=== PATIENT | female | born 1970 | race Caucasian/White ===

== ENCOUNTER 2024-01-09 10:28 | Outpatient (AMB) | payer OTHER, SELFPAY ==
--- NOTE | 2024-01-09 10:44 | MHC.PC.OV ---
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 Headaches-Forehead, nasal bridge. Denies maxillary pain, PND, cough Reports change in bowels, more constipation, abnormal colored stools Worried about excessive urination. Says urine is pale. Denies polydipsia. She notes excessive urination for the amount of liquid she drinks ROS see HPI PHYSICAL EXAM: GENERAL: Alert and oriented x 3. NAD EYES: EOMI. Anicteric. HENT: Moist mucous membranes. No scleral icterus. No cervical lymphadenopathy. LUNGS: Clear to auscultation bilaterally. CARDIOVASCULAR: Regular rate and rhythm. No murmur. No JVD. ABDOMEN: Soft, non-tender +bs EXTREMITIES: No edema. Non-tender. SKIN: No rashes or lesions. Warm. NEUROLOGIC: No focal neurological deficits. CN II-XII grossly intact PSYCHIATRIC: Cooperative. 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 1. Little interest or pleasure in doing things: not at all 2. Feeling down, depressed, or hopeless: not at all 3. Trouble falling or staying asleep, or sleeping too much: not at all 4. Feeling tired or having little energy: not at all 5. Poor appetite or overeating: not at all 6. Feeling bad about yourself - or that you are a failure or have let yourself or your family down: not at all 7. Trouble concentrating on things, such as reading the newspaper or watching television: not at all 8. Moving or speaking so slowly that other people could have noticed. Or the opposite - being so fidgety or restless that you have been moving around a lot more than usual: not at all 9. Thoughts that you would be better off or of hurting yourself in some way: not at all Total score: 0 Depression Screening Interpretation: Negative (neg) Depression Screening Done: Yes 42585 - PHQ-9 Billing: Yes Source: Developed by Drs. Eze Kerr, Shagufta Ray, Rivera Lam and colleagues, with an educational anthony from [employer]. Thrive Questionnaire Date Thrive assessed: 01/09/24 I am a: Patient What is your living situation today?: I have a steady place to live Within the past 12 months, did the food you bought not last and you didn't have the money to get more?: Never true Within the past 12 months, did you worry whether your food would run out before you got money to buy more?: Never true Do you have trouble paying for medicines?: No Do you have trouble getting transportation to medical appointments?: No Do you have trouble paying your heating and electricity bill?: No Do you have trouble taking care of your child, family member or friend?: No Do you have trouble with day-to-day activities such as bathing, preparing meals, shopping, managing finances, etc.?: No Are you currently unemployed and looking for a job?: No Are you interested in more education?: No Please select the resources that you would like help with: None Currently or been in a relationship where the following occur: No concerns reported THRIVE Score: 0 AUDIT C Alcohol Use Questionnaire (AUDIT-C) 1. How often do you have a drink containing alcohol?: Never 3. How often do you have six or more drinks on one occasion?: Never Total Score: 0 HAM-7 AMB Questionnaire HAM-7 Date HAM - 7 assessed: 01/09/24 Feeling nervous, anxious, or on edge: 0 = Not at all Not being able to stop or control worryin = Not at all Worrying too much about different things: 0 = Not at all Trouble relaxin = Not at all Being so restless that it is hard to sit still: 0 = Not at all Becoming easily annoyed or irritable: 0 = Not at all Feeling afraid as if something awful might happen: 0 = Not at all Total HAM-7 score (0-4 normal; 5-9 mild; 10-14 moderate; 15-21 severe): 0 Source: Developed by Drs. Eze Kerr, Shagufta Ray, Rivera Lam and colleagues, with an educational anthony from [employer]. HAM-7 Assessment Billing HAM-7 Assessment Tool: HAM-7 Assessment 27434 Physical exam (Primary Care) Vital Signs: Last Vital Signs Temp 98.1 F 01/09/24 10:55 Pulse 89 01/09/24 10:55 Resp 14 01/09/24 10:55 BP 104/78 01/09/24 10:55 Pulse Ox 98 01/09/24 10:55 Oxygen Delivery Method Room Air 01/09/24 10:55 BMI result Body Mass Index 31.6 Tobacco/Smoking Status: Tobacco use Status Tobacco use date assessed 01/09/24 01/09/24 10:46 Patient Tobacco Use Status Never used Tobacco 01/09/24 10:46 e-Cigarette/Vaping Use Never Used 01/09/24 10:46 PHQ-9: PHQ-9 Score PHQ-9: Total score 0 01/19/24 22:36 Depression Screening Interpretation: Negative (neg) Thrive Assessment: Date of Thrive Assessment Date Thrive assessed 01/09/24 01/09/24 11:01 Currently or been in a relationship where the following occur: No concerns reported Coding Level of Care Code New Pt Level 4 (91360) Diagnoses Constipation, unspecified constipation type K59.00 Constipation type: unspecified constipation type Acute pain of both shoulders M25.511; M25.512 Chronicity: acute Polyuria R35.89 Additional Codes HAM-7 Assessment Billing - HAM-7 Assessment Tool: HAM-7 Assessment 61414 ([id number]) Assessment & Plan Assessment & Plan (1) Constipation: Code(s): K59.00 - Constipation, unspecified Category: Medical Qualifiers: Constipation type: unspecified constipation type Qualified Code(s): K59.00 - Constipation, unspecified Plan: labs, fecal testing ordered (2) Bilateral shoulder pain: Code(s): M25.511 - Pain in right shoulder; M25.512 - Pain in left shoulder Category: Medical Qualifiers: Chronicity: acute Qualified Code(s): M25.511 - Pain in right shoulder; M25.512 - Pain in left shoulder Plan: Prednisone burst labs ordered (3) Polyuria: Code(s): R35.89 - Other polyuria Category: Medical Plan: labs, urine ordered Orders: Orders Erythrocyte Sedimentation Rate 01/16/24 R51.9 - Headache, unspecified, K59.00 - Constipation, unspecified, M25.511 - Pain in right shoulder, M25.512 - Pain in left shoulder, R35.89 - Other polyuria, R39.89 - Other symptoms and signs involving the genitourinary system Lyme IgG/IgM w/reflex to WB 01/16/24 R51.9 - Headache, unspecified, K59.00 - Constipation, unspecified, M25.511 - Pain in right shoulder, M25.512 - Pain in left shoulder, R35.89 - Other polyuria, R39.89 - Other symptoms and signs involving the genitourinary system Pancreatic Elastase-1 01/09/24 R51.9 - Headache, unspecified, K59.00 - Constipation, unspecified, M25.511 - Pain in right shoulder, M25.512 - Pain in left shoulder, R35.89 - Other polyuria, R39.89 - Other symptoms and signs involving the genitourinary system Calprotectin, Fecal 01/09/24 R51.9 - Headache, unspecified, K59.00 - Constipation, unspecified, M25.511 - Pain in right shoulder, M25.512 - Pain in left shoulder, R35.89 - Other polyuria, R39.89 - Other symptoms and signs involving the genitourinary system UA CC w/rflx Micro + Cult 01/16/24 R51.9 - Headache, unspecified, K59.00 - Constipation, unspecified, M25.511 - Pain in right shoulder, M25.512 - Pain in left shoulder, R35.89 - Other polyuria, R39.89 - Other symptoms and signs involving the genitourinary system Hemoglobin A1c 01/16/24 R51.9 - Headache, unspecified, K59.00 - Constipation, unspecified, M25.511 - Pain in right shoulder, M25.512 - Pain in left shoulder, R35.89 - Other polyuria, R39.89 - Other symptoms and signs involving the genitourinary system Osmolality Urine 01/16/24 R39.89 - Other symptoms and signs involving the genitourinary system, R35.89 - Other polyuria, M25.511 - Pain in right shoulder, M25.512 - Pain in left shoulder, K59.00 - Constipation, unspecified, R51.9 - Headache, unspecified Other Ref Test - Misc 01/16/24 R35.89 - Other polyuria, R39.89 - Other symptoms and signs involving the genitourinary system, R51.9 - Headache, unspecified, K59.00 - Constipation, unspecified, M25.511 - Pain in right shoulder, M25.512 - Pain in left shoulder Complete Blood Count Auto Diff 01/16/24 R51.9 - Headache, unspecified, K59.00 - Constipation, unspecified, M25.511 - Pain in right shoulder, M25.512 - Pain in left shoulder, R35.89 - Other polyuria, R39.89 - Other symptoms and signs involving the genitourinary system Tryptase 01/16/24 R51.9 - Headache, unspecified, K59.00 - Constipation, unspecified, M25.511 - Pain in right shoulder, M25.512 - Pain in left shoulder, R35.89 - Other polyuria, R39.89 - Other symptoms and signs involving the genitourinary system Vitamin B12 and Folate 01/16/24 R51.9 - Headache, unspecified, K59.00 - Constipation, unspecified, M25.511 - Pain in right shoulder, M25.512 - Pain in left shoulder, R35.89 - Other polyuria, R39.89 - Other symptoms and signs involving the genitourinary system CRP High Sensitivity 01/16/24 R51.9 - Headache, unspecified, K59.00 - Constipation, unspecified, M25.511 - Pain in right shoulder, M25.512 - Pain in left shoulder, R35.89 - Other polyuria, R39.89 - Other symptoms and signs involving the genitourinary system H pylori Ag Stool 01/09/24 R51.9 - Headache, unspecified, K59.00 - Constipation, unspecified, M25.511 - Pain in right shoulder, M25.512 - Pain in left shoulder, R35.89 - Other polyuria, R39.89 - Other symptoms and signs involving the genitourinary system Osmolality, Serum 01/16/24 R51.9 - Headache, unspecified, K59.00 - Constipation, unspecified, M25.511 - Pain in right shoulder, M25.512 - Pain in left shoulder, R35.89 - Other polyuria, R39.89 - Other symptoms and signs involving the genitourinary system TSH reflex Free T4 01/16/24 R51.9 - Headache, unspecified, K59.00 - Constipation, unspecified, M25.511 - Pain in right shoulder, M25.512 - Pain in left shoulder, R35.89 - Other polyuria, R39.89 - Other symptoms and signs involving the genitourinary system Other Ref Test - Misc 01/16/24 R35.89 - Other polyuria, R39.89 - Other symptoms and signs involving the genitourinary system, R51.9 - Headache, unspecified, K59.00 - Constipation, unspecified, M25.511 - Pain in right shoulder, M25.512 - Pain in left shoulder Comprehensive Met. Panel 01/16/24 R51.9 - Headache, unspecified, K59.00 - Constipation, unspecified, M25.511 - Pain in right shoulder, M25.512 - Pain in left shoulder, R35.89 - Other polyuria, R39.89 - Other symptoms and signs involving the genitourinary system Ferritin 01/16/24 R51.9 - Headache, unspecified, K59.00 - Constipation, unspecified, M25.511 - Pain in right shoulder, M25.512 - Pain in left shoulder, R35.89 - Other polyuria, R39.89 - Other symptoms and signs involving the genitourinary system Referrals Cologuard Test Z12.11 - Encounter for screening for malignant neoplasm of colon, Z12.12 - Encounter for screening for malignant neoplasm of rectum Rheumatology Referral M25.511 - Pain in right shoulder, M25.512 - Pain in left shoulder Medications: New naproxen 500 mg PO BID PRN 180 tabs 3RF pain prednisone 40 mg (2 x 20 mg) PO DAILY 10 tabs 0RF 5 days baclofen 10 mg PO BEDTIME PRN 90 tabs 1RF muscle spasm
[2024-01-09 10:55] VITALS: BP 104/78; PULSE 89; RESP 14; TEMP 36.7; O2SAT 98; BMI 31.6
== END 2024-01-09 11:38 | disposition home or self-care (01) ==
PROVIDERS: PCP Pediatrics; Visit Provider Internal Medicine
DX: K59.00 Constipation, unspecified (principal); M25.511 Pain in right shoulder; M25.512 Pain in left shoulder; R35.89 Other polyuria

== ENCOUNTER → 2024-01-09 10:28 | Outpatient (BNVA) | payer OTHER, SELFPAY | PROVIDERS: PCP Pediatrics; Visit Provider Internal Medicine | DX: K59.00 Constipation, unspecified (principal); M25.511 Pain in right shoulder; M25.512 Pain in left shoulder; R35.89 Other polyuria | CPT/HCPCS: 96127 ==

== ENCOUNTER 2024-01-16 09:50 | Outpatient (REF) | payer OTHER, SELFPAY ==
[2024-01-16 14:22] LABS: Appearance Urine Clear; Color Urine Yellow; Glucose Urine UA Negative (Negative); Leukocyte Esterase Urine Small (1+) (Negative); Nitrite Urine Negative (Negative); UMIC TRIGGER UACC YES; Urine Blood Small (1+) (Negative); Urine Ketones Negative (Negative); Urine Protein Negative (Neg-Trace)
[2024-01-16 14:25] LABS: Bacteria Urine None Seen (None Seen); Hyaline Casts Urine 0-2 /LPF (0-2); Squamous Epithelial Cell Urine 0-2 /HPF (0-2); UACC Culture Trigger YES; WBC Urine 0-5 /HPF (0-5)
[2024-01-16 14:55] LABS: Osmolality Urine 693 mosm/kg (373-1093)
== END 2024-01-16 09:51 | disposition home or self-care (01) ==
LOC: HO.WFDLDS 09:50
PROVIDERS: Visit Provider Internal Medicine
DX: R51.9 Headache, unspecified (principal); R39.89 Other symptoms and signs involving the genitourinary system; R35.89 Other polyuria; M25.511 Pain in right shoulder; M25.512 Pain in left shoulder; K59.00 Constipation, unspecified
CPT/HCPCS: 81001; 83935; 87086

== ENCOUNTER 2024-01-19 09:44 | Outpatient (REF) | payer OTHER, SELFPAY ==
[2024-01-19 10:39] LABS: MANUAL DIFF FLAG NO
[2024-01-19 10:49] LABS: Basophils Percent Auto 0.8 % (0-2); Eosinophils Absolute Auto 0.2 X10*3/uL (0.0-0.4); Eosinophils Percent Auto 4.7 % (0-4); Hematocrit 40.1 % (37.0-47.0); Hemoglobin 13.3 g/dl (12.0-16.0); Imm Gran Abs Auto 0.01 X10*3/uL (0.00-0.03); Imm Gran Pct Auto 0.3 % (0.0-0.4); Lymphocytes Absolute Auto 1.4 X10*3/uL (1.2-4.9); Lymphocytes Percent Auto 36.6 % (20-40); Mean Corpuscular HGB Conc 33.2 g/dl (31.0-35.0); Mean Corpuscular Hemoglobin 30.5 pg (27.0-33.0); Mean Platelet Volume 11.9 fL (9.4-12.3); Monocytes Absolute Auto 0.3 X10*3/uL (0.1-1.2); Monocytes Percent Auto 8.7 % (2-11); Neutrophils Absolute Auto 1.9 x10*3/uL (2.0-8.3); Neutrophils Percent Auto 48.9 % (45-73); Platelet Count 170 X10*3/uL (160-400); Red Blood Count 4.36 X10*6/uL (4.20-5.50); Red Cell Distribution Width 12.3 % (11.0-16.0); White Blood Count 3.8 X10*3/uL (4.8-10.8)
[2024-01-19 10:55] LABS: Estimated Average Glucose 108 mg/dL; Hemoglobin A1C 116.4863 umol/L; Hemoglobin A1c % 5.4 % (<6.0); Total Hemoglobin (HGBA1C) 3281.1575 umol/L
[2024-01-19 11:26] LABS: Alanine Aminotransferase 26 U/L (0-31); Albumin Level 4.1 g/dL (3.5-5.0); Alkaline Phosphatase 90 U/L (39-117); Anion Gap 10 (12-20); Aspartate Amino Transferase 21 U/L (5-31); Bilirubin Total 0.6 mg/dL (0.0-1.0); Blood Urea Nitrogen 24 mg/dL (9-16); Calcium 9.5 mg/dL (8.4-10.2); Carbon Dioxide 28 mmol/L (22-29); Chloride 107 mmol/L (96-108); Estimated Glomerular Filt Rate > 60; Glucose Random 102 mg/dL (60-115); Sodium 141 mmol/L (135-145)
[2024-01-19 11:31] LABS: Erythrocyte Sedimentation Rate 13 MM/HR (0-20)
[2024-01-19 11:35] LABS: Osmolality, Serum 299 mosm/kg (281-305)
[2024-01-19 11:50] LABS: Ferritin 300 ng/mL (10-250); TSH reflex Free T4 1.64 uIU/mL (0.32-4.0)
[2024-01-19 11:55] LABS: Folate 11.8 ng/mL (> or = 4.0); Vitamin B12 705 pg/mL (200-900)
[2024-01-20 09:18] LABS: Lyme Abs Screen <0.90 index
== END 2024-01-19 09:45 | disposition home or self-care (01) ==
LOC: HO.WFDLDS 09:44
PROVIDERS: Visit Provider Internal Medicine
DX: R51.9 Headache, unspecified (principal); K59.00 Constipation, unspecified; M25.511 Pain in right shoulder; M25.512 Pain in left shoulder; R35.89 Other polyuria; R39.89 Other symptoms and signs involving the genitourinary system
CPT/HCPCS: 36415; 80053; 82607; 82728; 82746; 83036; 83520; 83930; 84443; 85025; 85652; 86141; 86617; 86618

== ENCOUNTER 2024-01-21 11:33 | Outpatient (REF) | payer OTHER, SELFPAY ==
[2024-01-21 14:33] LABS: Appearance Urine Clear; Color Urine Yellow; Glucose Urine UA Negative (Negative); Leukocyte Esterase Urine Negative (Negative); Nitrite Urine Negative (Negative); Specific Gravity - Urine >= 1.030 (1.005-1.025); Urine Blood Negative (Negative); Urine Ketones Negative (Negative); Urine Protein Negative (Neg-Trace)
== END 2024-01-21 11:34 | disposition home or self-care (01) ==
LOC: HO.WFDLDS 11:33
PROVIDERS: Visit Provider Internal Medicine
DX: R51.9 Headache, unspecified (principal); K59.00 Constipation, unspecified; M25.511 Pain in right shoulder; M25.512 Pain in left shoulder; R35.89 Other polyuria; R39.89 Other symptoms and signs involving the genitourinary system
CPT/HCPCS: 81003

== ENCOUNTER 2024-01-27 11:23 | Outpatient (AMB) | payer OTHER, SELFPAY ==
--- NOTE | 2024-01-27 10:17 | A.OFFPC_ITS ---
Vital Signs 01/27/24 11:35 Height 5 ft 2.99 in Weight 178 lb 4 oz BMI 31.6 BP 100/62 Blood Pressure Location Lt brachial Position Sitting Pulse 95 Pulse Source Pulse Oximeter Pulse Oximetry (%) 95 Oxygen Delivery Method Room Air Intake Visit Reasons: f/up 1/2 h labs Allergies No Known Allergies Allergy (Verified 01/27/24 11:34) Tobacco use date assessed: 01/09/24 Dental Screening Dental Screen Date: 01/09/24 HPI HPI Comments History of Present Illness Details 53 year old female presenting for follow up. She was recently seen to establish care Multiple concerns Bilateral shoulder pain-started 6 weeks ago. Naproxen continues to helpful. She was referred to rheumatology Headaches-Forehead, nasal bridge. Denies maxillary pain, PND, cough. Discussed otc allergy medications. Interval lessening Reports change in bowels, more constipation, abnormal colored stools. Labs normal. She did not complete the stool studies of cologuard yet Worried about excessive urination. Says urine is pale. Denies polydipsia. She notes excessive urination for the amount of liquid she drinks. No diabetes. Urine testing unremarkable. ROS see HPI PHYSICAL EXAM: GENERAL: Alert and oriented x 3. NAD EYES: EOMI. Anicteric. HENT: Moist mucous membranes. No scleral icterus. No cervical lymphadenopathy. LUNGS: Clear to auscultation bilaterally. CARDIOVASCULAR: Regular rate and rhythm. No murmur. No JVD. ABDOMEN: Soft, non-tender +bs EXTREMITIES: No edema. Non-tender. SKIN: No rashes or lesions. Warm. NEUROLOGIC: No focal neurological deficits. CN II-XII grossly intact PSYCHIATRIC: Cooperative. 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 Current occupational exposures/hazards: No Cognitive needs: No Hearing needs: No Vision needs: No Questionnaire Thrive Questionnaire Date Thrive assessed: 12/19/23 I am a: Patient What is your living situation today?: I have a steady place to live Within the past 12 months, did the food you bought not last and you didn't have the money to get more?: Never true Within the past 12 months, did you worry whether your food would run out before you got money to buy more?: Never true Do you have trouble paying for medicines?: No Do you have trouble getting transportation to medical appointments?: No Do you have trouble paying your heating and electricity bill?: No Do you have trouble taking care of your child, family member or friend?: No Do you have trouble with day-to-day activities such as bathing, preparing meals, shopping, managing finances, etc.?: No Are you currently unemployed and looking for a job?: No Are you interested in more education?: No Please select the resources that you would like help with: None Currently or been in a relationship where the following occur: No concerns reported THRIVE Score: 0 HAM-7 AMB Questionnaire HAM-7 Date HAM - 7 assessed: 01/09/24 Source: Developed by Drs. Eze Kerr, Shagufta Ray, Rivera Lam and colleagues, with an educational anthony from [employer]. Physical exam (Primary Care) Vital Signs: Last Vital Signs Pulse 95 01/27/24 11:35 BP 100/62 01/27/24 11:35 Pulse Ox 95 01/27/24 11:35 Oxygen Delivery Method Room Air 01/27/24 11:35 BMI result Body Mass Index 31.6 Tobacco/Smoking Status: Tobacco use Status Tobacco use date assessed 01/09/24 01/27/24 10:18 Patient Tobacco Use Status Never used Tobacco 01/27/24 10:18 e-Cigarette/Vaping Use Never Used 01/27/24 10:18 Thrive Assessment: Date of Thrive Assessment Date Thrive assessed 12/19/23 01/27/24 10:18 Currently or been in a relationship where the following occur: No concerns reported Coding Level of Care Code Est Pt Level 4 (13299) Diagnoses Constipation, unspecified constipation type K59.00 Constipation type: unspecified constipation type Acute pain of both shoulders M25.511; M25.512 Chronicity: acute Assessment & Plan Assessment & Plan (1) Constipation: Code(s): K59.00 - Constipation, unspecified Category: Medical Qualifiers: Constipation type: unspecified constipation type Qualified Code(s): K59.00 - Constipation, unspecified Plan: Referred to gastroenterology for ongoing changes Recommend magnesium oxide prn or miralax daily (2) Bilateral shoulder pain: Code(s): M25.511 - Pain in right shoulder; M25.512 - Pain in left shoulder Category: Medical Qualifiers: Chronicity: acute Qualified Code(s): M25.511 - Pain in right shoulder; M25.512 - Pain in left shoulder Plan: referral pending to rheumatology Orders: Referrals Gastroenterology Referral K59.00 - Constipation, unspecified
[2024-01-27 11:35] VITALS: BP 100/62; PULSE 95; O2SAT 95; BMI 31.6
== END 2024-01-27 17:03 | disposition home or self-care (01) ==
PROVIDERS: PCP Pediatrics; Visit Provider Internal Medicine
DX: K59.00 Constipation, unspecified (principal); M25.511 Pain in right shoulder; M25.512 Pain in left shoulder

== ENCOUNTER → 2024-01-27 11:23 | Outpatient (BNVA) | payer OTHER, SELFPAY | PROVIDERS: PCP Pediatrics; Visit Provider Internal Medicine ==

== ENCOUNTER 2024-04-20 13:38 | Outpatient (AMB) | payer OTHER, SELFPAY ==
--- NOTE | 2024-04-20 13:50 | MHC.PC.OV ---
Vital Signs 04/20/24 13:51 Height 5 ft 2.99 in Weight 177 lb 8 oz BMI 31.4 BP 92/66 Blood Pressure Location Rt brachial Position Sitting Pulse 97 Pulse Source Pulse Oximeter Pulse Oximetry (%) 98 Oxygen Delivery Method Room Air Intake Visit Reasons: Itchiness on Skin Intake Note: Itchyness all over the body, no rash. Ongoing for two months. 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 She remembers it starting around the time she went to the [place]. Itchiness is worse at night. Patient reports fine raised red roughness of arms chest back and legs. When she scratches she quickly develops streaks where she scratches. She gets blotches of reddened areas of skin. Denies known allergies. No new products. Multiple concerns Bilateral shoulder pain-started 6 weeks ago. Naproxen continues to helpful. She was referred to rheumatology Headaches-Forehead, nasal bridge. Denies maxillary pain, PND, cough. Discussed otc allergy medications. Interval lessening Reports change in bowels, more constipation, abnormal colored stools. Labs normal. She did not complete the stool studies of cologuard yet Worried about excessive urination. Says urine is pale. Denies polydipsia. She notes excessive urination for the amount of liquid she drinks. No diabetes. Urine testing unremarkable. ROS see HPI PHYSICAL EXAM: GENERAL: Alert and oriented x 3. NAD EYES: EOMI. Anicteric. HENT: Moist mucous membranes. No scleral icterus. No cervical lymphadenopathy. LUNGS: Clear to auscultation bilaterally. CARDIOVASCULAR: Regular rate and rhythm. No murmur. No JVD. ABDOMEN: Soft, non-tender +bs EXTREMITIES: No edema. Non-tender. SKIN: scattered sandpaper/fine redness. There is some scattered small areas of hypopigmentationThere is some dermatogrophia of the arm and chest and red blotches of skin on the chest NEUROLOGIC: No focal neurological deficits. CN II-XII grossly intact PSYCHIATRIC: Cooperative. 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 1. Little interest or pleasure in doing things: nearly every day 2. Feeling down, depressed, or hopeless: nearly every day 3. Trouble falling or staying asleep, or sleeping too much: nearly every day 4. Feeling tired or having little energy: several days 5. Poor appetite or overeating: not at all Source: Developed by Drs. Eze Kerr, Shagufta Ray, Rivera Lam and colleagues, with an educational antohny from [employer]. Thrive Questionnaire Date Thrive assessed: 04/19/24 I am a: Patient What is your living situation today?: I have a steady place to live Within the past 12 months, did the food you bought not last and you didn't have the money to get more?: Never true Within the past 12 months, did you worry whether your food would run out before you got money to buy more?: Never true Do you have trouble paying for medicines?: No Do you have trouble getting transportation to medical appointments?: No Do you have trouble paying your heating and electricity bill?: No Do you have trouble taking care of your child, family member or friend?: No Do you have trouble with day-to-day activities such as bathing, preparing meals, shopping, managing finances, etc.?: No Are you currently unemployed and looking for a job?: No Are you interested in more education?: No Please select the resources that you would like help with: None Currently or been in a relationship where the following occur: No concerns reported THRIVE Score: 0 AUDIT C Alcohol Use Questionnaire (AUDIT-C) 1. How often do you have a drink containing alcohol?: Never Total Score: 0 HAM-7 AMB Questionnaire HAM-7 Date HAM - 7 assessed: 01/09/24 Feeling nervous, anxious, or on edge: 0 = Not at all Not being able to stop or control worryin = Not at all Worrying too much about different things: 0 = Not at all Trouble relaxin = Not at all Being so restless that it is hard to sit still: 0 = Not at all Becoming easily annoyed or irritable: 0 = Not at all Feeling afraid as if something awful might happen: 0 = Not at all Total HAM-7 score (0-4 normal; 5-9 mild; 10-14 moderate; 15-21 severe): 0 Source: Developed by Drs. Eze Kerr, Shagufta Ray, Rivera Lam and colleagues, with an educational anthony from [employer]. Physical exam (Primary Care) Vital Signs: Last Vital Signs Pulse 97 04/20/24 13:51 BP 92/66 04/20/24 13:51 Pulse Ox 98 04/20/24 13:51 Oxygen Delivery Method Room Air 04/20/24 13:51 BMI result Body Mass Index 31.4 Tobacco/Smoking Status: Tobacco use Status Tobacco use date assessed 01/09/24 04/20/24 13:54 Patient Tobacco Use Status Never used Tobacco 04/20/24 13:54 e-Cigarette/Vaping Use Never Used 04/20/24 13:54 Thrive Assessment: Date of Thrive Assessment Date Thrive assessed 04/19/24 04/20/24 13:54 Currently or been in a relationship where the following occur: No concerns reported Coding Level of Care Code Est Pt Level 4 (62243) Diagnoses Pruritus L29.9 Assessment & Plan Assessment & Plan (1) Pruritus: Code(s): L29.9 - Pruritus, unspecified Category: Medical Plan: Atopy/dermatitis-topical steroid. Referral to dermatology Will treat with fluconazole for areas of hypopigmentation Orders: Orders Complete Blood Count Auto Diff 04/20/24 L29.9 - Pruritus, unspecified, L50.3 - Dermatographic urticaria, R79.89 - Other specified abnormal findings of blood chemistry Liver Panel 04/20/24 L29.9 - Pruritus, unspecified, L50.3 - Dermatographic urticaria, R79.89 - Other specified abnormal findings of blood chemistry Ferritin 04/20/24 L29.9 - Pruritus, unspecified, L50.3 - Dermatographic urticaria, R79.89 - Other specified abnormal findings of blood chemistry Basic Metabolic Panel 04/20/24 L29.9 - Pruritus, unspecified, L50.3 - Dermatographic urticaria, R79.89 - Other specified abnormal findings of blood chemistry Referrals Allergy & Immunology Referral L29.9 - Pruritus, unspecified, L50.3 - Dermatographic urticaria, R79.89 - Other specified abnormal findings of blood chemistry Medications: New fluconazole may repeat second dose 72 hrs after first dose if symptoms persist 150 mg PO DAILY 7 tabs 0RF 7 days clobetasol 0.05% 1 appl topical BID 60 grams 2RF 2 weeks diphenhydramine HCl 25 mg PO BEDTIME PRN 30 tabs 0RF sleep
[2024-04-20 13:51] VITALS: BP 92/66; PULSE 97; O2SAT 98; BMI 31.4
== END 2024-04-20 14:22 | disposition home or self-care (01) ==
PROVIDERS: PCP Pediatrics; Visit Provider Internal Medicine
DX: L29.9 Pruritus, unspecified (principal)

== ENCOUNTER 2024-05-11 09:02 | Outpatient (REF) | payer OTHER, SELFPAY ==
[2024-05-11 11:21] LABS: MANUAL DIFF FLAG NO
[2024-05-11 11:43] LABS: Basophils Percent Auto 0.7 % (0-2); Eosinophils Absolute Auto 0.3 X10*3/uL (0.0-0.4); Eosinophils Percent Auto 6.9 % (0-4); Hematocrit 39.8 % (37.0-47.0); Hemoglobin 13.1 g/dl (12.0-16.0); Lymphocytes Absolute Auto 1.5 X10*3/uL (1.2-4.9); Lymphocytes Percent Auto 33.3 % (20-40); Mean Corpuscular HGB Conc 32.9 g/dl (31.0-35.0); Mean Corpuscular Hemoglobin 30.4 pg (27.0-33.0); Mean Corpuscular Volume 92.3 fL (80.0-98.0); Mean Platelet Volume 13.1 fL (9.4-12.3); Monocytes Absolute Auto 0.4 X10*3/uL (0.1-1.2); Monocytes Percent Auto 9.4 % (2-11); Neutrophils Absolute Auto 2.2 x10*3/uL (2.0-8.3); Neutrophils Percent Auto 49.7 % (45-73); Platelet Count 149 X10*3/uL (160-400); Red Blood Count 4.31 X10*6/uL (4.20-5.50); Red Cell Distribution Width 12.6 % (11.0-16.0); White Blood Count 4.4 X10*3/uL (4.8-10.8)
[2024-05-11 12:11] LABS: Alanine Aminotransferase 41 U/L (0-31); Albumin Level 4.1 g/dL (3.5-5.0); Alkaline Phosphatase 92 U/L (39-117); Anion Gap 14 (12-20); Aspartate Amino Transferase 30 U/L (5-31); Bilirubin Direct 0.1 mg/dL (0.0-0.5); Bilirubin Total 0.5 mg/dL (0.0-1.0); Blood Urea Nitrogen 24 mg/dL (9-16); Carbon Dioxide 27 mmol/L (22-29); Chloride 108 mmol/L (96-108); Estimated Glomerular Filt Rate > 60; Glucose Random 101 mg/dL (60-115); Potassium 4.5 mmol/L (3.3-5.1); Sodium 144 mmol/L (135-145); Total Protein 7.4 g/dL (6.5-8.0)
[2024-05-11 12:17] LABS: Ferritin 263 ng/mL (10-250)
== END 2024-05-11 09:03 | disposition home or self-care (01) ==
LOC: HO.WFDLDS 09:02
PROVIDERS: Visit Provider Internal Medicine
DX: L50.3 Dermatographic urticaria (principal); L29.9 Pruritus, unspecified; R79.89 Other specified abnormal findings of blood chemistry
CPT/HCPCS: 80048; 80076; 82728; 85025

== ENCOUNTER 2024-05-12 14:21 | Outpatient (REF) | payer OTHER, SELFPAY ==
[2024-05-19 20:19] LABS: Calprotectin, Fecal 42 mcg/g
[2024-05-20 03:19] LABS: Pancreatic Elastase-1 495 mcg/g (>200)
== END 2024-05-12 14:22 | disposition home or self-care (01) ==
LOC: HO.LNP 14:21
PROVIDERS: Visit Provider Internal Medicine
DX: R51.9 Headache, unspecified (principal); K59.00 Constipation, unspecified; M25.511 Pain in right shoulder; M25.512 Pain in left shoulder; R35.89 Other polyuria; R39.89 Other symptoms and signs involving the genitourinary system
CPT/HCPCS: 82656; 83993; 87338

== ENCOUNTER 2024-05-17 16:30 | Outpatient (AMB) | payer OTHER, SELFPAY ==
--- NOTE | 2024-05-17 15:51 | MHC.PC.OV ---
Intake Visit Reasons: phone f/up Allergies No Known Allergies Allergy (Verified 04/20/24 13:51) Tobacco use date assessed: 01/09/24 Dental Screening Dental Screen Date: 01/09/24 HPI HPI Comments History of Present Illness Details 54 year old female presenting for follow up Last time she was seen she was c/o pruritus. Patient reports months of itchy skin and rash. She remembers it starting around the time she went to the [facility]. Itchiness is worse at night. Patient reports fine raised red roughness of arms chest back and legs. When she scratches she quickly develops streaks where she scratches. She gets blotches of reddened areas of skin. Denies known allergies. No new products. She feels like symptoms wax and wane. Fairly diffuse itching at night. Denies jaundice, weight loss. She is concerned for elevation in eosinophils, mild elevation in LFTs and ferritin. She really was hoping to get SHOAIB enzyme checked but lab did not have capability. She has appointment with gastroenterology and allergy/immunology next month Multiple concerns Bilateral shoulder pain-started 6 weeks ago. Naproxen continues to helpful. She was referred to rheumatology Headaches-Forehead, nasal bridge. Denies maxillary pain, PND, cough. Discussed otc allergy medications. Interval lessening Reports change in bowels, more constipation, abnormal colored stools. Labs normal. She did not complete the stool studies of cologuard yet Worried about excessive urination. Says urine is pale. Denies polydipsia. She notes excessive urination for the amount of liquid she drinks. No diabetes. Urine testing unremarkable. 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 Current occupational exposures/hazards: No Cognitive needs: No Hearing needs: No Vision needs: No Questionnaire Thrive Questionnaire Date Thrive assessed: 04/19/24 I am a: Patient What is your living situation today?: I have a steady place to live Within the past 12 months, did the food you bought not last and you didn't have the money to get more?: Never true Within the past 12 months, did you worry whether your food would run out before you got money to buy more?: Never true Do you have trouble paying for medicines?: No Do you have trouble getting transportation to medical appointments?: No Do you have trouble paying your heating and electricity bill?: No Do you have trouble taking care of your child, family member or friend?: No Do you have trouble with day-to-day activities such as bathing, preparing meals, shopping, managing finances, etc.?: No Are you currently unemployed and looking for a job?: No Are you interested in more education?: No Please select the resources that you would like help with: None Currently or been in a relationship where the following occur: No concerns reported THRIVE Score: 0 AUDIT C Alcohol Use Questionnaire (AUDIT-C) 3. How often do you have six or more drinks on one occasion?: Never Total Score: 0 HAM-7 AMB Questionnaire HAM-7 Date HAM - 7 assessed: 01/09/24 Source: Developed by Drs. Eze Kerr, Shagufta Ray, Rivera Lam and colleagues, with an educational anthony from [employer]. Physical exam (Primary Care) Tobacco/Smoking Status: Tobacco use Status Tobacco use date assessed 01/09/24 05/17/24 15:52 Patient Tobacco Use Status Never used Tobacco 05/17/24 15:52 e-Cigarette/Vaping Use Never Used 05/17/24 15:52 Thrive Assessment: Date of Thrive Assessment Date Thrive assessed 04/19/24 05/17/24 15:52 Currently or been in a relationship where the following occur: No concerns reported Telehealth Telehealth Telehealth Platform: [facility] Location of provider rendering services: practice address Location of patient: address on file Patient Identification confirmed using: Name, : Yes Telehealth method: voice only Patient verbally consented to treatment: Yes Patient verbally consented to billing insurance company: Yes Patient informed of any privacy concerns related to visit: Yes Minutes spent on Phone/Video with Pt.: 34 Coding Level of Care Code Tele Est Pt Level 4 (21594) Diagnoses Pruritus L29.9 Assessment & Plan Assessment & Plan (1) Pruritus: Code(s): L29.9 - Pruritus, unspecified Category: Medical Plan: Reviewed recent lab work Discussed ongoing pruritus and other constitution of symptoms Recommended follow up as scheduled with allergy and immunology and gastroenterology Orders: Orders US abdomen limited 05/17/24 L29.9 - Pruritus, unspecified, R79.89 - Other specified abnormal findings of blood chemistry
== END 2024-05-17 17:03 | disposition home or self-care (01) ==
LOC: HO.HMCFM 16:30
PROVIDERS: PCP Internal Medicine; Visit Provider Internal Medicine
DX: L29.9 Pruritus, unspecified (principal)

== ENCOUNTER → 2024-05-17 16:30 | Outpatient (BNVA) | payer OTHER, SELFPAY | PROVIDERS: PCP Internal Medicine; Visit Provider Internal Medicine | DX: L29.9 Pruritus, unspecified (principal); R79.89 Other specified abnormal findings of blood chemistry ==

== ENCOUNTER 2024-06-11 09:31 | Outpatient (REF) | payer OTHER, SELFPAY ==
--- NOTE | ~2024-06-11 | US_ITS ---
EXAMINATION: US ABDOMEN LIMITED HISTORY: L29.9 - Pruritus, unspecified TECHNIQUE: Real-time grayscale ultrasound imaging of the right upper quadrant was performed and images were reviewed. COMPARISON: There are no prior studies for comparison. FINDINGS: Liver: The right lobe of the liver measures 13.0 cm in size. The left lobe of the liver measures 8.4 cm in size. The liver demonstrates normal homogeneous echotexture. No focal mass or intrahepatic biliary ductal dilatation is identified. There is normal hepatopedal flow in the portal vein. Gallbladder and biliary tree: The gallbladder is unremarkable, without evidence of calculi, wall thickening, or pericholecystic fluid. There is no sonographic Trujillo sign. The common bile duct is normal in caliber measuring 3 mm. Right Kidney: The right kidney measures 10.1 cm in length. The right kidney is unremarkable, without evidence of masses, hydronephrosis, or calculi. Pancreas: The pancreas is obscured by bowel gas. Abdominal aorta and inferior vena cava: The visualized portions of the abdominal aorta and inferior vena cava are normal in caliber. There is no free fluid in the right upper quadrant. US/US abdomen limited IMPRESSION: The pancreas is obscured by bowel gas. Otherwise unremarkable right upper quadrant ultrasound. Electronically signed by: Eze Montesinos MD 06/14/2024 08:22 AM EDT
== END 2024-06-11 09:32 | disposition home or self-care (01) ==
LOC: HO.US 09:31
PROVIDERS: PCP Internal Medicine; Visit Provider Internal Medicine
DX: R79.89 Other specified abnormal findings of blood chemistry (principal); L29.9 Pruritus, unspecified
CPT/HCPCS: 76705

== ENCOUNTER → 2024-06-11 09:33 | Outpatient (BNV) | payer OTHER, SELFPAY | PROVIDERS: PCP Internal Medicine; Visit Provider Radiology Diagnostic Radiology | DX: L29.9 Pruritus, unspecified (principal) | CPT/HCPCS: 76705 ==

== ENCOUNTER 2024-06-14 08:50 | Outpatient (AMB) | payer OTHER, SELFPAY ==
--- NOTE | 2024-06-14 09:15 | A.OFFPC_ITS ---
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 The lateral muscle of the neck feels tight. No ear, sinus issues. Mildly poor dentition, no infection. Denies fever. Last time she was seen she was c/o pruritus. Patient reports months of itchy skin and rash. She remembers it starting around the time she went to the [facility]. Itchiness is worse at night. Patient reports fine raised red roughness of arms chest back and legs. When she scratches she quickly develops streaks where she scratches. She gets blotches of reddened areas of skin. Denies known allergies. No new products. She feels like symptoms wax and wane. Fairly diffuse itching at night. Denies jaundice, weight loss. She is concerned for elevation in eosinophils, mild elevation in LFTs and ferritin. She really was hoping to get SHOAIB enzyme checked but lab did not have capability. She has appointment with gastroenterology and allergy/immunology next month Multiple concerns Bilateral shoulder pain-started 6 weeks ago. Naproxen continues to helpful. She was referred to rheumatology Headaches-Forehead, nasal bridge. Denies maxillary pain, PND, cough. Discussed otc allergy medications. Interval lessening Reports change in bowels, more constipation, abnormal colored stools. Labs normal. She did not complete the stool studies of cologuard yet Worried about excessive urination. Says urine is pale. Denies polydipsia. She notes excessive urination for the amount of liquid she drinks. No diabetes. Urine testing unremarkable. ROS see HPI PHYSICAL EXAM: GENERAL: Alert and oriented x 3. NAD EYES: EOMI. Anicteric. HENT: Moist mucous membranes. No scleral icterus. No cervical lymphadenopathy. Right supraclavicular fullness without palpable mass or node LUNGS: Clear to auscultation bilaterally. CARDIOVASCULAR: Regular rate and rhythm. No murmur. No JVD. ABDOMEN: Soft, non-tender +bs EXTREMITIES: No edema. Non-tender. SKIN: No rashes or lesions. Warm. NEUROLOGIC: No focal neurological deficits. CN II-XII grossly intact PSYCHIATRIC: Cooperative. 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 6. Feeling bad about yourself - or that you are a failure or have let yourself or your family down: not at all 7. Trouble concentrating on things, such as reading the newspaper or watching television: not at all 8. Moving or speaking so slowly that other people could have noticed. Or the opposite - being so fidgety or restless that you have been moving around a lot more than usual: not at all 9. Thoughts that you would be better off or of hurting yourself in some way: not at all Source: Developed by Drs. Eze Kerr, Shagufta Ray, Rivera Lam and colleagues, with an educational anhtony from [employer]. Thrive Questionnaire Date Thrive assessed: 04/19/24 I am a: Patient What is your living situation today?: I have a steady place to live Within the past 12 months, did the food you bought not last and you didn't have the money to get more?: Never true Within the past 12 months, did you worry whether your food would run out before you got money to buy more?: Never true Do you have trouble paying for medicines?: No Do you have trouble getting transportation to medical appointments?: No Do you have trouble paying your heating and electricity bill?: No Do you have trouble taking care of your child, family member or friend?: No Do you have trouble with day-to-day activities such as bathing, preparing meals, shopping, managing finances, etc.?: No Are you currently unemployed and looking for a job?: No Are you interested in more education?: No Please select the resources that you would like help with: None Currently or been in a relationship where the following occur: No concerns reported THRIVE Score: 0 HAM-7 AMB Questionnaire HAM-7 Date HAM - 7 assessed: 01/09/24 Source: Developed by Drs. Eze Kerr, Shagufta Ray, Rivera Lam and colleagues, with an educational anthony from [employer]. Physical exam (Primary Care) Vital Signs: Last Vital Signs Temp 98.1 F 06/14/24 09:18 Pulse 82 06/14/24 09:18 Resp 14 06/14/24 09:18 BP 96/64 06/14/24 09:18 Pulse Ox 98 06/14/24 09:18 Oxygen Delivery Method Room Air 06/14/24 09:18 BMI result Body Mass Index 31.6 Tobacco/Smoking Status: Tobacco use Status Tobacco use date assessed 01/09/24 06/14/24 09:17 Patient Tobacco Use Status Never used Tobacco 06/14/24 09:17 e-Cigarette/Vaping Use Never Used 06/14/24 09:17 Thrive Assessment: Date of Thrive Assessment Date Thrive assessed 04/19/24 06/14/24 09:17 Currently or been in a relationship where the following occur: No concerns re ported Coding Level of Care Code Est Pt Level 4 (07694) Diagnoses Supraclavicular fossa fullness R22.2 No history of major surgery within 1 month Z78.9 Assessment & Plan Assessment & Plan (1) Supraclavicular fossa fullness: Code(s): R22.2 - Localized swelling, mass and lump, trunk Category: Medical Plan: Ultrasound ordered. No sign of infection. No surrounding LN Patient has slip from allergy for CBC Follow up for persistent or worsening symptoms (2) No history of major surgery within 1 month: Code(s): Z78.9 - Other specified health status Plan: reviewed Orders: Orders Pathologist Review - CBC Today R22.2 - Localized swelling, mass and lump, trunk US soft tiss head and/or neck Today R22.2 - Localized swelling, mass and lump, trunk
[2024-06-14 09:18] VITALS: BP 96/64; PULSE 82; RESP 14; TEMP 36.7; O2SAT 98; BMI 31.6
== END 2024-06-14 12:27 | disposition home or self-care (01) ==
PROVIDERS: PCP Internal Medicine; Visit Provider Internal Medicine
DX: R22.2 Localized swelling, mass and lump, trunk (principal); Z78.9 Other specified health status

== ENCOUNTER 2024-06-30 16:03 | Outpatient (REF) | payer OTHER, SELFPAY ==
--- NOTE | ~2024-06-30 | US_ITS ---
CLINICAL HISTORY: R22.2 - Localized swelling, mass and lump, trunk US neck nonvascular Comparison: None Findings: Sonographic evaluation area of clinical concern bilateral supraclavicular region showed no discrete solid or cystic mass shadowing or calcifications. No lymphadenopathy. Impression: No sonographic correlate to the area of clinical concern bilateral supraclavicular region This document has been electronically signed by: Yinka Trinidad MD on 07/01/2024 12:15:44
== END 2024-06-30 16:04 | disposition home or self-care (01) ==
LOC: HO.US 16:03
PROVIDERS: PCP Internal Medicine; Visit Provider Internal Medicine
DX: R22.2 Localized swelling, mass and lump, trunk (principal)
CPT/HCPCS: 76536

== ENCOUNTER → 2024-06-30 16:05 | Outpatient (BNV) | payer OTHER, SELFPAY | PROVIDERS: PCP Internal Medicine; Visit Provider Radiology Diagnostic Radiology | DX: R22.2 Localized swelling, mass and lump, trunk (principal) | CPT/HCPCS: 76536 ==

== ENCOUNTER 2025-03-09 10:49 | Outpatient (AMB) | payer OTHER, SELFPAY ==
[2025-03-09 11:01] VITALS: BP 110/80; PULSE 105; O2SAT 97; BMI 33.0
--- NOTE | 2025-03-09 11:01 | MHC.OFFVIS ---
Vital Signs 03/09/25 11:01 Height 5 ft 2.99 in Weight 186 lb 8.177 oz BMI 33.0 BP 110/80 Blood Pressure Location Rt brachial Position Sitting Pulse 105 H Pulse Source Pulse Oximeter Pulse Oximetry (%) 97 Oxygen Delivery Method Room Air Intake Visit Reasons: bl Shoulder Pain/New Patient Intake Note: NEW patient presents today for muscle pain.upper and middle of back. Accompanied by: Self / Same As Patient Allergies No Known Allergies Allergy (Verified 03/09/25 11:01) Medication List - Last Reconciled 03/09/25 by Philip oRwland MD clobetasol 0.05% 1 appl topical BID 2 weeks diphenhydramine HCl 25 mg PO BEDTIME PRN naproxen 500 mg PO BID PRN HPI HPI bl Shoulder Pain/New Patient: Details: New patient evaluation for upper back pain. 1 year history progressively getting worse. Muscles are sore. Daily. Exacerbated with movement of upper extremities. Holding phone helps. Naproxen and ibuprofen helps temporary. Failed tylenol. OTC cold and hot cream provides temporary relief. Daily massage from helps temporary. She is unable to stretch her arms due to soreness of upper to mid back. No triggering event or MVA. She has not tried heating pad. In the past she had a muscle relaxer and reports that she slept for 24 hours. She has not tried a muscle relaxer in the last year. 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 Good respiratory effort Skin: No lesions seen MSK: Tender to palpate midthoracic spinous process and paraspinal muscles. No tenderness of rest of spinal process or paraspinal muscles. No tenderness of trapezius. Normal range of motion of cervical spine. Normal lumbar flexion. Normal range of motion of shoulders without tenderness on palpation. Vital Signs: Last Vital Signs Pulse 105 H 03/09/25 11:01 BP 110/80 03/09/25 11:01 Pulse Ox 97 03/09/25 11:01 Oxygen Delivery Method Room Air 03/09/25 11:01 BMI result Body Mass Index 33.0 Assessment & Plan Assessment & Plan (1) Mid back pain: Comment: With myofascial strain contributing. She has tenderness of spinous process. I will consider spinal pathology contributing. We discussed conservative management. She has had temporary benefit with naproxen. We discussed importance of consistency with rehabilitation plan. Code(s): M54.9 - Dorsalgia, unspecified Category: Medical Plan: Start naproxen 500 mg twice a day for at least 2 weeks. If she is finding benefit but pain has not resolved, she will complete 1 month course of naproxen. I have ordered labs for drug monitoring on chronic NSAID PT ordered with myofascial release, TENs unit trial She will obtain ergonomic chair for back support Avoid using exercise machine at home that may be aggravating her back pain Apply heat to back twice a day. I have asked her to purchase a heating pad Return to clinic in 3 months (2) Thoracic myofascial strain: Code(s): S29.019A - Strain of muscle and tendon of unspecified wall of thorax, initial encounter Category: Medical Plan: See above (3) Upper back pain: Code(s): M54.9 - Dorsalgia, unspecified Category: Medical Plan: See above Orders: Orders Creatinine Today Z79.1 - [facility] (current) use of non-steroidal anti-inflammatories (NSAID) PT Evaluation and Treatment Today M54.9 - Dorsalgia, unspecified, S29.019A - Strain of muscle and tendon of unspecified wall of thorax, initial encounter XR Shoulder Genaro min 2V Today M25.511 - Pain in right shoulder, M25.512 - Pain in left shoulder Alanine Aminotransferase Today Z79.1 - [facility] (current) use of non-steroidal anti-inflammatories (NSAID) Aspartate Amino Transferase Today Z79.1 - [facility] (current) use of non-steroidal anti-inflammatories (NSAID) XR thoracic spine 2V Today M54.9 - Dorsalgia, unspecified Medications: Changed From naproxen 500 mg PO BID PRN 180 tabs 3RF pain To naproxen 500 mg PO BID PRN 180 tabs 1RF pain 90 days Coding Level of Care Code New Pt Level 4 (26340) Diagnoses Mid back pain M54.9 Thoracic myofascial strain S29.019A Upper back pain M54.9
== END 2025-03-09 12:01 | disposition home or self-care (01) ==
LOC: HO.RHES 10:50
PROVIDERS: PCP Internal Medicine; Visit Provider Internal Medicine Rheumatology
DX: M54.9 Dorsalgia, unspecified (principal); S29.019A Strain of muscle and tendon of unspecified wall of thorax, initial encounter
CPT/HCPCS: 99204

== ENCOUNTER 2025-03-24 11:59 | Outpatient (REF) | payer OTHER, SELFPAY ==
[2025-03-24 15:46] LABS: Alanine Aminotransferase 64 U/L (0-31); Aspartate Amino Transferase 43 U/L (5-31); Estimated Glomerular Filt Rate > 60
== END 2025-03-24 12:00 | disposition home or self-care (01) ==
LOC: HO.WFDLDS 11:59
PROVIDERS: Visit Provider Internal Medicine Rheumatology
DX: Z79.1 Long term (current) use of non-steroidal anti-inflammatories (NSAID) (principal)
CPT/HCPCS: 36415; 82565; 84450; 84460

== ENCOUNTER 2025-04-04 15:42 | Outpatient (REF) | payer OTHER, SELFPAY ==
--- NOTE | ~2025-04-04 | XR_ITS ---
EXAMINATION: XR SHOULDER 2 OR MORE VIEWS BILATERAL HISTORY: M25.511 - Pain in right shoulder COMPARISON: There are no prior studies available for comparison. FINDINGS: Eight views of the bilateral shoulders are submitted. Osseous mineralization is normal. There is no fracture or dislocation. The glenohumeral joints are maintained. There is mild narrowing of the bilateral AC joints. An amorphous soft tissue calcification adjacent to the greater tuberosity of the right humerus is likely related to the rotator cuff. XR/XR Shoulder Genaro min 2V IMPRESSION: 1. Mild narrowing of the bilateral AC joints. 2. Probable rotator cuff calcification on the right. Electronically signed by: Eze Montesinos MD 04/05/2025 08:03 AM EUFEMIA
--- NOTE | ~2025-04-04 | XR_ITS ---
EXAMINATION: XR THORACIC SPINE 2 VIEWS HISTORY: M54.9 - Dorsalgia, unspecified COMPARISON: There are no prior studies available for comparison. FINDINGS: AP and lateral views of the thoracic spine are submitted. Osseous mineralization is normal. The vertebral bodies maintain normal height and alignment without evidence of fracture or subluxation. The intervertebral disc spaces are preserved. The visualized paraspinal soft tissues are unremarkable. XR/XR thoracic spine 2V IMPRESSION: Unremarkable examination of the thoracic spine. Electronically signed by: Eze Montesinos MD 04/05/2025 08:05 AM EUFEMIA LO
== END 2025-04-04 15:43 | disposition home or self-care (01) ==
LOC: HO.XRAY 15:42
PROVIDERS: PCP Internal Medicine; Visit Provider Internal Medicine Rheumatology
DX: M25.511 Pain in right shoulder (principal); M25.512 Pain in left shoulder; M54.9 Dorsalgia, unspecified
CPT/HCPCS: 72070; 73030

== ENCOUNTER → 2025-04-04 15:46 | Outpatient (BNV) | payer OTHER, SELFPAY | PROVIDERS: PCP Internal Medicine; Visit Provider Radiology Diagnostic Radiology | DX: M19.011 Primary osteoarthritis, right shoulder (principal); M19.012 Primary osteoarthritis, left shoulder; M54.9 Dorsalgia, unspecified | CPT/HCPCS: 72070; 73030 ==